=== PATIENT | male | born 1985 | race Asian ===

== ENCOUNTER 2023-03-10 15:38 | Inpatient (IN) | payer OTHER ==
[2023-03-10] MEDS ORDERED: diazePAM CARPU-JECT 10 MG/2 ML DISP.SYRIN IVPUSH ONE (16:57)
[2023-03-10] MEDS ORDERED: THIAMINE HCL 100 MG TABLET (FP) PO ONE (16:59)
[2023-03-10] MEDS ORDERED: diazePAM CARPU-JECT 10 MG/2 ML DISP.SYRIN ONE (17:35)
[2023-03-10] MEDS ORDERED: THIAMINE HCL 100 MG TABLET (FP) ONE (17:35)
[2023-03-10 17:44] LABS: BASO % 0.6 % (0-2.0); EOS % 3.5 % (0-4.5); HEMATOCRIT 39.3 % (35.4-49); HEMOGLOBIN 13.1 GM/dL (11.7-16.9); LYMPH % 13.5 % (8-40); MCH 28.6 pg (25.7-33.7); MCHC 33.3 g/dl (32.0-35.9); MEAN PLT VOLUME 8.6 fl (7.5-11.1); MONO % 12.1 % (3.8-10.2); NEUT % 70.3 % (42.8-82.8); PLATELET COUNT 383 10^3/uL (134-434); RBC 4.57 M/mm3 (4.00-5.60); RDW 17.1 % (11.9-15.9); WHITE BLOOD COUNT 7.8 K/mm3 (4.0-10.0)
[2023-03-10 18:07] LABS: POTASSIUM 4.7 mmol/L (3.5-5.1)
[2023-03-10 18:09] LABS: ALBUMIN 2.5 g/dl (3.4-5.0); BLOOD UREA NITROGEN 19.2 mg/dL (7-18)
[2023-03-10 18:12] LABS: CREATININE 2.2 mg/dL (0.55-1.3)
[2023-03-10 18:14] LABS: BILIRUBIN,TOTAL 0.6 mg/dL (0.2-1); TOT PROT 6.4 g/dl (6.4-8.2)
[2023-03-10] MEDS ORDERED: ATORVASTATIN CA 40 MG TABLET (FP) PO ONE (18:42)
[2023-03-10] MEDS ORDERED: CARVEDILOL 25 MG TABLET (FP) PO ONE (18:42)
[2023-03-10] MEDS ORDERED: FUROSEMIDE 40 MG TABLET (FP) PO ONE (18:42)
[2023-03-10] MEDS ORDERED: SPIRONOLACTONE 25 MG TABLET PO ONE (18:42)
[2023-03-10] MEDS ORDERED: ATORVASTATIN CA 40 MG TABLET (FP) ONE ×2 (18:49→23:42)
[2023-03-10] MEDS ORDERED: FUROSEMIDE 40 MG TABLET (FP) ONE (18:49)
[2023-03-10] MEDS ORDERED: CARVEDILOL 25 MG TABLET (FP) ONE (18:49)
[2023-03-10] MEDS ORDERED: SPIRONOLACTONE 25 MG TABLET ONE (18:49)
[2023-03-10] MEDS ORDERED: ACETAMINOPHEN 1000 MG/100 ML BAG IVPB ONE (20:00)
[2023-03-10] MEDS ORDERED: ACETAMINOPHEN INJECTION 100 ML IVPB ONE (20:50)
[2023-03-10] MEDS ORDERED: LORazepam 1 MG TABLET PO PRN (21:43)
[2023-03-10] MEDS: LORazepam 2 MG TABLET PO SCH ×2 (22:11→23:50)
[2023-03-10] MEDS: INSULIN SLIDING SCALE (NOVOLOG) 1 VIAL SQ SCH (22:57)
[2023-03-10] MEDS ORDERED: HEPARIN NA (PORCINE) 5,000 UNITS/ML 1ML VIAL ONE (23:42)
[2023-03-10] MEDS ORDERED: LORazepam 1 MG TABLET ONE (23:42)
[2023-03-10] MEDS ORDERED: hydrALAZINE HCL 10 MG TABLET ONE (23:42)
[2023-03-10] MEDS: ATORVASTATIN CA 40 MG TABLET (FP) PO SCH (23:50)
[2023-03-10] MEDS: HEPARIN NA (PORCINE) 5,000 UNITS/ML 1ML VIAL SQ SCH (23:50)
[2023-03-10] MEDS: hydrALAZINE HCL 10 MG TABLET PO SCH (23:50)
[2023-03-11 00:52] VITALS: BMI 23.3
[2023-03-11] MEDS: LORazepam 2 MG TABLET PO SCH (05:53)
[2023-03-11] MEDS: HEPARIN NA (PORCINE) 5,000 UNITS/ML 1ML VIAL SQ SCH ×3 (05:59→23:39)
[2023-03-11] MEDS: hydrALAZINE HCL 10 MG TABLET PO SCH ×3 (05:59→23:40)
[2023-03-11] MEDS ORDERED: FUROSEMIDE 40 MG TABLET (FP) PO SCH (06:00)
[2023-03-11] MEDS: LORazepam 1 MG TABLET PO SCH ×4 (06:03→23:39)
[2023-03-11] MEDS: INSULIN SLIDING SCALE (NOVOLOG) 1 VIAL SQ SCH ×4 (06:04→23:39)
[2023-03-11 08:22] LABS: HEMATOCRIT 37.3 % (35.4-49); HEMOGLOBIN 12.3 GM/dL (11.7-16.9); MCH 28.3 pg (25.7-33.7); MEAN CELL VOLUME 85.8 fl (80-96); MEAN PLT VOLUME 7.9 fl (7.5-11.1); PLATELET COUNT 258 10^3/uL (134-434); RBC 4.34 M/mm3 (4.00-5.60); RDW 16.9 % (11.9-15.9)
[2023-03-11 08:29] LABS: CHLORIDE 108 mmol/L (98-107); SODIUM 142 mmol/L (136-145)
[2023-03-11 08:40] LABS: BLOOD UREA NITROGEN 17.4 mg/dL (7-18); CALCIUM 7.7 mg/dL (8.5-10.1); CO2 25 mmol/L (21-32); GLUCOSE,RANDOM 94 mg/dL (74-106)
[2023-03-11 08:41] LABS: ALBUMIN 2.2 g/dl (3.4-5.0)
[2023-03-11 08:43] LABS: ALK PHOS 134 U/L (45-117); SGPT/ALT 18 U/L (13-61)
[2023-03-11 08:44] LABS: LDL CHOLESTEROL (ONLY SJRH) 108 mg/dL (5-100); SGOT/AST 23 U/L (15-37)
[2023-03-11 08:45] LABS: BILIRUBIN,TOTAL 1.1 mg/dL (0.2-1); TOT PROT 5.3 g/dl (6.4-8.2)
[2023-03-11 09:00] LABS: ANION GAP 9 mmol/L (4-13); CHOLESTEROL 170 mg/dL (50-200); HDL CHOLESTEROL 40 mg/dL (40-60); POTASSIUM 2.7 mmol/L (3.5-5.1)
[2023-03-11] MEDS ORDERED: POTASSIUM CHLORIDE TABS 20 MEQ TABLET.ER (FP) PO ONE (10:00)
[2023-03-11] MEDS: MULTIVITAMINS (DAILY MVI) TABLET (FP) PO SCH (10:03)
[2023-03-11] MEDS: ASPIRIN COATED 81 MG TABLET.EC PO SCH (10:03)
[2023-03-11] MEDS: FOLIC ACID 1 MG TABLET (FP) PO SCH (10:04)
[2023-03-11] MEDS: CARVEDILOL 25 MG TABLET (FP) PO SCH (10:04)
[2023-03-11] MEDS: THIAMINE HCL 100 MG TABLET (FP) PO SCH (10:04)
[2023-03-11] MEDS: SPIRONOLACTONE 25 MG TABLET PO SCH (10:04)
[2023-03-11] MEDS: ISOSORBIDE MONONITRATE 60 MG TAB.SR.24H (FP) PO SCH (10:05)
[2023-03-11] MEDS: KCL 10 MEQ IVPB 10 MEQ/100 ML INFUS.BAG IVPB SCH ×4 (10:05→15:14)
[2023-03-11] MEDS: FUROSEMIDE 40 MG/4 ML INJECTABLE VIAL IVPUSH SCH (13:48)
[2023-03-11] MEDS ORDERED: KCL 10 MEQ IVPB 10 MEQ/100 ML INFUS.BAG IVPB SCH (15:00)
[2023-03-11] MEDS: ATORVASTATIN CA 40 MG TABLET (FP) PO SCH (23:40)
[2023-03-12] MEDS: LORazepam 1 MG TABLET PO SCH ×4 (05:10→22:55)
[2023-03-12] MEDS: FUROSEMIDE 40 MG/4 ML INJECTABLE VIAL IVPUSH SCH ×2 (05:11→13:38)
[2023-03-12] MEDS: hydrALAZINE HCL 10 MG TABLET PO SCH ×3 (05:11→22:55)
[2023-03-12] MEDS: HEPARIN NA (PORCINE) 5,000 UNITS/ML 1ML VIAL SQ SCH ×3 (05:11→22:55)
[2023-03-12] MEDS: INSULIN SLIDING SCALE (NOVOLOG) 1 VIAL SQ SCH ×3 (06:11→16:41)
[2023-03-12 06:54] LABS: HEMOGLOBIN 13.1 GM/dL (11.7-16.9); MCH 28.4 pg (25.7-33.7); MCHC 32.7 g/dl (32.0-35.9); MEAN CELL VOLUME 86.9 fl (80-96); MEAN PLT VOLUME 7.6 fl (7.5-11.1); PLATELET COUNT 317 10^3/uL (134-434); RDW 17.4 % (11.9-15.9); WHITE BLOOD COUNT 10.9 K/mm3 (4.0-10.0)
[2023-03-12 07:08] LABS: POTASSIUM 3.5 mmol/L (3.5-5.1)
[2023-03-12 07:11] LABS: CALCIUM 7.9 mg/dL (8.5-10.1)
[2023-03-12 07:12] LABS: ALBUMIN 2.4 g/dl (3.4-5.0); MAGNESIUM 1.4 mg/dL (1.8-2.4)
[2023-03-12 07:15] LABS: CREATININE 2.3 mg/dL (0.55-1.3); PHOSPHOROUS 2.6 mg/dL (2.5-4.9)
[2023-03-12 07:16] LABS: BILIRUBIN,TOTAL 0.9 mg/dL (0.2-1); TOT PROT 5.9 g/dl (6.4-8.2)
[2023-03-12] MEDS ORDERED: MAGNESIUM SULFATE IN WATER 2 GM/50 ML IVPB IVPB ONE (09:00)
[2023-03-12] MEDS: ISOSORBIDE MONONITRATE 60 MG TAB.SR.24H (FP) PO SCH (11:13)
[2023-03-12] MEDS: THIAMINE HCL 100 MG TABLET (FP) PO SCH (11:13)
[2023-03-12] MEDS: FOLIC ACID 1 MG TABLET (FP) PO SCH (11:13)
[2023-03-12] MEDS: SPIRONOLACTONE 25 MG TABLET PO SCH (11:13)
[2023-03-12] MEDS: MULTIVITAMINS (DAILY MVI) TABLET (FP) PO SCH (11:14)
[2023-03-12] MEDS: CARVEDILOL 25 MG TABLET (FP) PO SCH ×2 (11:14→22:55)
[2023-03-12] MEDS: ASPIRIN COATED 81 MG TABLET.EC PO SCH (11:14)
[2023-03-12] MEDS ORDERED: MAGNESIUM 2GM/50ML STERILE WATER IVPB IVPB ONE (13:12)
[2023-03-12] MEDS ORDERED: MAGNESIUM SULF 50% (8.12 MEQ/2 ML-1 GM VIAL) IVPB ONE (15:16)
[2023-03-12] MEDS: ATORVASTATIN CA 40 MG TABLET (FP) PO SCH (22:55)
[2023-03-13] MEDS ORDERED: LORazepam 0.5 MG TABLET PO PRN
[2023-03-13] MEDS ORDERED: FUROSEMIDE 40 MG TABLET (FP) PO SCH (06:00)
[2023-03-13] MEDS: LORazepam 0.5 MG TABLET PO SCH ×4 (06:25→22:18)
[2023-03-13] MEDS: HEPARIN NA (PORCINE) 5,000 UNITS/ML 1ML VIAL SQ SCH ×3 (06:26→22:19)
[2023-03-13] MEDS: hydrALAZINE HCL 10 MG TABLET PO SCH ×3 (06:26→22:19)
[2023-03-13 06:33] LABS: BASO % 0.6 % (0-2.0); EOS % 2.3 % (0-4.5); HEMATOCRIT 42.3 % (35.4-49); HEMOGLOBIN 13.7 GM/dL (11.7-16.9); LYMPH % 11.4 % (8-40); MCH 28.2 pg (25.7-33.7); MCHC 32.5 g/dl (32.0-35.9); MEAN CELL VOLUME 86.7 fl (80-96); MEAN PLT VOLUME 7.5 fl (7.5-11.1); MONO % 9.2 % (3.8-10.2); NEUT % 76.5 % (42.8-82.8); PLATELET COUNT 337 10^3/uL (134-434); RBC 4.88 M/mm3 (4.00-5.60); RDW 17.7 % (11.9-15.9); WHITE BLOOD COUNT 11.3 K/mm3 (4.0-10.0)
[2023-03-13 06:55] LABS: POTASSIUM 3.8 mmol/L (3.5-5.1)
[2023-03-13 06:58] LABS: ALBUMIN 2.5 g/dl (3.4-5.0); BLOOD UREA NITROGEN 22.1 mg/dL (7-18); CALCIUM 8.1 mg/dL (8.5-10.1); MAGNESIUM 2.3 mg/dL (1.8-2.4)
[2023-03-13 07:02] LABS: BILIRUBIN,TOTAL 0.7 mg/dL (0.2-1); CREATININE 2.5 mg/dL (0.55-1.3); PHOSPHOROUS 3.2 mg/dL (2.5-4.9)
[2023-03-13 07:04] LABS: TOT PROT 6.2 g/dl (6.4-8.2)
[2023-03-13] MEDS: FOLIC ACID 1 MG TABLET (FP) PO SCH (10:00)
[2023-03-13] MEDS ORDERED: SACUBITRIL/VALSARTAN 24 MG-26 MG TABLET PO SCH (10:00)
[2023-03-13] MEDS: SPIRONOLACTONE 25 MG TABLET PO SCH (10:00)
[2023-03-13] MEDS: MULTIVITAMINS (DAILY MVI) TABLET (FP) PO SCH (10:00)
[2023-03-13] MEDS ORDERED: LISINOPRIL 5 MG TABLET PO SCH (10:00)
[2023-03-13] MEDS: ASPIRIN COATED 81 MG TABLET.EC PO SCH (10:00)
[2023-03-13] MEDS: CARVEDILOL 25 MG TABLET (FP) PO SCH ×2 (10:01→22:19)
[2023-03-13] MEDS: ISOSORBIDE MONONITRATE 60 MG TAB.SR.24H (FP) PO SCH (10:01)
[2023-03-13] MEDS: THIAMINE HCL 100 MG TABLET (FP) PO SCH (10:01)
[2023-03-13] MEDS: FUROSEMIDE 40 MG TABLET (FP) PO SCH (13:56)
[2023-03-13] MEDS: ATORVASTATIN CA 40 MG TABLET (FP) PO SCH (22:18)
[2023-03-14] MEDS ORDERED: LORazepam 0.5 MG TABLET PO ONE (05:00)
[2023-03-14] MEDS: FUROSEMIDE 40 MG TABLET (FP) PO SCH ×2 (06:18→13:29)
[2023-03-14] MEDS: HEPARIN NA (PORCINE) 5,000 UNITS/ML 1ML VIAL SQ SCH ×3 (06:18→23:01)
[2023-03-14] MEDS: hydrALAZINE HCL 10 MG TABLET PO SCH ×3 (06:18→23:00)
[2023-03-14 07:25] LABS: BASO % 0.5 % (0-2.0); EOS % 1.6 % (0-4.5); HEMATOCRIT 42.6 % (35.4-49); HEMOGLOBIN 13.7 GM/dL (11.7-16.9); LYMPH % 10.1 % (8-40); MCH 27.9 pg (25.7-33.7); MCHC 32.2 g/dl (32.0-35.9); MEAN CELL VOLUME 86.6 fl (80-96); MEAN PLT VOLUME 8.1 fl (7.5-11.1); MONO % 9.9 % (3.8-10.2); NEUT % 77.9 % (42.8-82.8); PLATELET COUNT 384 10^3/uL (134-434); RBC 4.91 M/mm3 (4.00-5.60); RDW 17.9 % (11.9-15.9); WHITE BLOOD COUNT 13.3 K/mm3 (4.0-10.0)
[2023-03-14 07:42] LABS: POTASSIUM 4.1 mmol/L (3.5-5.1)
[2023-03-14 07:45] LABS: ALBUMIN 2.5 g/dl (3.4-5.0); BLOOD UREA NITROGEN 27.9 mg/dL (7-18); CALCIUM 8.5 mg/dL (8.5-10.1); MAGNESIUM 2.1 mg/dL (1.8-2.4)
[2023-03-14 07:48] LABS: CREATININE 2.5 mg/dL (0.55-1.3); PHOSPHOROUS 3.6 mg/dL (2.5-4.9)
[2023-03-14 07:49] LABS: BILIRUBIN,TOTAL 0.6 mg/dL (0.2-1); TOT PROT 6.2 g/dl (6.4-8.2)
[2023-03-14] MEDS: ASPIRIN COATED 81 MG TABLET.EC PO SCH (10:27)
[2023-03-14] MEDS: THIAMINE HCL 100 MG TABLET (FP) PO SCH (10:27)
[2023-03-14] MEDS: CARVEDILOL 25 MG TABLET (FP) PO SCH ×2 (10:27→23:00)
[2023-03-14] MEDS: MULTIVITAMINS (DAILY MVI) TABLET (FP) PO SCH (10:27)
[2023-03-14] MEDS: LISINOPRIL 5 MG TABLET PO SCH (10:27)
[2023-03-14] MEDS: SPIRONOLACTONE 25 MG TABLET PO SCH (10:27)
[2023-03-14] MEDS: ISOSORBIDE MONONITRATE 60 MG TAB.SR.24H (FP) PO SCH (10:27)
[2023-03-14] MEDS: FOLIC ACID 1 MG TABLET (FP) PO SCH (10:27)
[2023-03-14] MEDS ORDERED: ACETAMINOPHEN 1000 MG/100 ML BAG IVPB ONE (11:45)
[2023-03-14] MEDS: predniSONE 20 MG TABLET (UD) PO SCH (14:30)
[2023-03-14] MEDS: ATORVASTATIN CA 40 MG TABLET (FP) PO SCH (23:00)
[2023-03-15 05:50] VITALS: RESP 18
[2023-03-15] MEDS: FUROSEMIDE 40 MG TABLET (FP) PO SCH (05:51)
[2023-03-15] MEDS: hydrALAZINE HCL 10 MG TABLET PO SCH (05:51)
[2023-03-15] MEDS: HEPARIN NA (PORCINE) 5,000 UNITS/ML 1ML VIAL SQ SCH (05:51)
[2023-03-15] MEDS: FOLIC ACID 1 MG TABLET (FP) PO SCH (10:34)
[2023-03-15] MEDS: predniSONE 20 MG TABLET (UD) PO SCH (10:34)
[2023-03-15] MEDS: LISINOPRIL 5 MG TABLET PO SCH (10:34)
[2023-03-15] MEDS: ASPIRIN COATED 81 MG TABLET.EC PO SCH (10:34)
[2023-03-15] MEDS: MULTIVITAMINS (DAILY MVI) TABLET (FP) PO SCH (10:34)
[2023-03-15] MEDS: THIAMINE HCL 100 MG TABLET (FP) PO SCH (10:34)
[2023-03-15] MEDS: ISOSORBIDE MONONITRATE 60 MG TAB.SR.24H (FP) PO SCH (10:34)
[2023-03-15] MEDS: SPIRONOLACTONE 25 MG TABLET PO SCH (10:34)
[2023-03-15] MEDS: CARVEDILOL 25 MG TABLET (FP) PO SCH (10:34)
[2023-03-15 13:24] VITALS: BP 132/76; PULSE 70; TEMP 98.6
== END 2023-03-15 13:27 | disposition home or self-care (01) | DRG 194 ==
LOC: JER 15:38 → JERBED 18:52 → J4S 03-11 00:41
PROVIDERS: ADMIT Internal Medicine; ATTEND Internal Medicine
DX: I13.0 Hypertensive heart and chronic kidney disease with heart failure and stage 1 through stage 4 chronic kidney disease, or unspecified chronic kidney disease (principal); I47.20 Ventricular tachycardia, unspecified; F10.239 Alcohol dependence with withdrawal, unspecified; I24.89 Other forms of acute ischemic heart disease; J20.5 Acute bronchitis due to respiratory syncytial virus; M10.9 Gout, unspecified; I16.0 Hypertensive urgency; I50.23 Acute on chronic systolic (congestive) heart failure; E87.6 Hypokalemia; N18.9 Chronic kidney disease, unspecified; R74.01 Elevation of levels of liver transaminase levels
CPT/HCPCS: 0241U-QW; 36415; 71045-TC-FY; 76700-TC; 80053; 80061; 82550; 82962; 83036; 83735; 83880; 84100; 84132; 84439; 84443; 84484; 85025; 85027; 86704; 86803; 87340; 87517; 93005; 93010; 93306-TC; 99285-25; J1644

== ENCOUNTER 2023-05-04 17:08 | Inpatient (IN) | payer OTHER ==
[2023-05-04] MEDS ORDERED: ACETAMINOPHEN INJECTION 100 ML IVPB ONE (18:25)
[2023-05-04] MEDS ORDERED: VANCOMYCIN/WATER 1250 MG 1,250 MG/250 ML BAG IVPB ONE (18:25)
[2023-05-04] MEDS ORDERED: CEFEPIME 1 GM/100 ML BAG IVPB ONE (18:26)
[2023-05-04] MEDS: ACETAMINOPHEN 1000 MG/100 ML BAG IVPB ONE (19:04)
[2023-05-04 19:06] LABS: VENOUS BASE EXCESS -1.9 mmol/L (-2-2); VENOUS O2 SATURATION 98.5 % (70-80); VENOUS PCO2 22.1 mmHg (38-52); VENOUS PH 7.548 (7.310-7.410)
[2023-05-04 19:07] LABS: HEMATOCRIT 35.6 % (35.4-49); HEMOGLOBIN 11.7 GM/dL (11.7-16.9); MCH 28.7 pg (25.7-33.7); MEAN CELL VOLUME 86.8 fl (80-96); MEAN PLT VOLUME 7.8 fl (7.5-11.1); PLATELET COUNT 271 10^3/uL (134-434); RDW 18.1 % (11.9-15.9); WHITE BLOOD COUNT 21.7 K/mm3 (4.0-10.0)
[2023-05-04 19:13] LABS: INR 1.12 (0.83-1.09)
[2023-05-04 19:16] LABS: ACTIVATED PTT 32.2 SECONDS (25.2-36.5)
[2023-05-04 19:31] LABS: POTASSIUM 3.4 mmol/L (3.5-5.1)
[2023-05-04 19:33] LABS: CALCIUM 7.1 mg/dL (8.5-10.1)
[2023-05-04 19:34] LABS: ALBUMIN 2.3 g/dl (3.4-5.0); BLOOD UREA NITROGEN 48.5 mg/dL (7-18); MAGNESIUM 1.1 mg/dL (1.8-2.4)
[2023-05-04 19:37] LABS: CREATININE 3.8 mg/dL (0.55-1.3)
[2023-05-04 19:39] LABS: BILIRUBIN,TOTAL 0.9 mg/dL (0.2-1); TOT PROT 6.3 g/dl (6.4-8.2)
[2023-05-04] MEDS ORDERED: diazePAM CARPU-JECT 10 MG/2 ML DISP.SYRIN ONE (20:06)
[2023-05-04] MEDS: SODIUM CHLORIDE 0.9% 500 ML INFUS.BAG IV ONE ×2 (20:15→20:16)
[2023-05-04] MEDS: CEFEPIME HCL 1 GM VIAL (RESTRICTED TO ID) IVPB ONE (20:15)
[2023-05-04] MEDS: diazePAM CARPU-JECT 10 MG/2 ML DISP.SYRIN IVPUSH ONE (20:16)
[2023-05-04] MEDS ORDERED: KCL 10 MEQ IVPB 10 MEQ/100 ML INFUS.BAG IVPB ONE ×2 (20:38→23:48)
[2023-05-04] MEDS ORDERED: MAGNESIUM SULFATE IN WATER 2 GM/50 ML IVPB IVPB ONE (20:38)
[2023-05-04 20:44] LABS: ANISOCYTOSIS 1+; MACROCYTOSIS 0; PLATELET ESTIMATE NORMAL
[2023-05-04] MEDS: VANCOMYCIN/WATER 1250 MG 1,250 MG/250 ML BAG IVPB ONE (20:45)
[2023-05-04] MEDS: MAGNESIUM SULFATE IN WATER 2 GM/50 ML IVPB IVPB ONE (20:45)
[2023-05-04 23:21] LABS: CHLORIDE 96 mmol/L (98-107); SODIUM 131 mmol/L (136-145)
[2023-05-04 23:23] LABS: GLUCOSE,RANDOM 99 mg/dL (74-106)
[2023-05-04 23:24] LABS: ALBUMIN 2.1 g/dl (3.4-5.0); BLOOD UREA NITROGEN 50.8 mg/dL (7-18); CO2 21 mmol/L (21-32)
[2023-05-04] MEDS: KCL 10 MEQ IVPB 10 MEQ/100 ML INFUS.BAG IVPB SCH ×2 (23:25→23:50)
[2023-05-04 23:27] LABS: SGOT/AST 159 U/L (15-37); SGPT/ALT 40 U/L (13-61)
[2023-05-04 23:28] LABS: BILIRUBIN,TOTAL 1.1 mg/dL (0.2-1); TOT PROT 5.8 g/dl (6.4-8.2)
[2023-05-04 23:29] LABS: ALK PHOS 132 U/L (45-117)
[2023-05-04 23:30] LABS: ANION GAP 15 mmol/L (4-13); CALCIUM 6.5 mg/dL (8.5-10.1); POTASSIUM 2.5 mmol/L (3.5-5.1)
[2023-05-04 23:51] LABS: MAGNESIUM 1.8 mg/dL (1.8-2.4)
[2023-05-05] MEDS ORDERED: MEROPENEM 500 MG in DEXTROSE 5%-WATER 100 ML IVPB SCH (02:00)
[2023-05-05] MEDS ORDERED: KCL 10 MEQ IVPB 10 MEQ/100 ML INFUS.BAG IVPB ONE (02:07)
[2023-05-05 02:23] LABS: EPI CELLS 9 /uL (0-25.1); HYALINE CASTS 1 /uL (0-3.1); PH,URINE 5.5 (5.0-8.0); URINE APPEARANCE CLEAR; URINE BACTERIA 4 /uL (0-1359); URINE BILIRUBIN NEGATIVE (NEGATIVE); URINE COLOR YELLOW; URINE GLUCOSE (UA) NEGATIVE (NEGATIVE); URINE KETONE NEGATIVE (NEGATIVE); URINE LEUK ESTERASE NEGATIVE (NEGATIVE); URINE NITRITE NEGATIVE (NEGATIVE); URINE PROTEIN 3+ (NEGATIVE); URINE RBC 126 /uL (0-23.9); URINE UROBILINOGEN 0.2 mg/dL (0.2-1.0); URINE WBC 24 /uL (0-25.8)
[2023-05-05] MEDS ORDERED: MEROPENEM 500 MG VIAL (RESTRICTED TO ID) IVPB ONE (02:57)
[2023-05-05] MEDS ORDERED: LORazepam 1 MG TABLET ONE ×2 (03:04→09:55)
[2023-05-05] MEDS: LORazepam 1 MG TABLET PO PRN (03:06)
[2023-05-05] MEDS: MEROPENEM 500 MG in DEXTROSE 5%-WATER 100 ML IVPB SCH (03:06)
[2023-05-05] MEDS: FOLIC ACID INJECTION - 1 MG, THIAMINE HCL 100 MG, MULTIVIT INJECTION ADULT 10 ML in SOD... IVPB ONE (03:47)
[2023-05-05 06:55] LABS: BASO % 0.1 % (0-2.0); HEMATOCRIT 34.3 % (35.4-49); HEMOGLOBIN 11.1 GM/dL (11.7-16.9); LYMPH % 3.5 % (8-40); MCH 28.7 pg (25.7-33.7); MCHC 32.4 g/dl (32.0-35.9); MEAN CELL VOLUME 88.6 fl (80-96); MEAN PLT VOLUME 8.2 fl (7.5-11.1); MONO % 6.8 % (3.8-10.2); NEUT % 89.6 % (42.8-82.8); PLATELET COUNT 169 10^3/uL (134-434); RBC 3.87 M/mm3 (4.00-5.60); RDW 18.1 % (11.9-15.9); WHITE BLOOD COUNT 15.1 K/mm3 (4.0-10.0)
[2023-05-05] MEDS: HEPARIN NA (PORCINE) 5,000 UNITS/ML 1ML VIAL SQ SCH (06:55)
[2023-05-05 07:34] LABS: ALK PHOS 109 U/L (45-117); ANION GAP 15 mmol/L (4-13); BILIRUBIN,TOTAL 0.9 mg/dL (0.2-1); BLOOD UREA NITROGEN 52.9 mg/dL (7-18); CALCIUM 6.5 mg/dL (8.5-10.1); CHLORIDE 98 mmol/L (98-107); CO2 19 mmol/L (21-32); CREATININE 4.2 mg/dL (0.55-1.3); GLUCOSE,RANDOM 110 mg/dL (74-106); MAGNESIUM 1.8 mg/dL (1.8-2.4); PHOSPHOROUS 4.2 mg/dL (2.5-4.9); POTASSIUM 2.7 mmol/L (3.5-5.1); SGOT/AST 134 U/L (15-37); SGPT/ALT 38 U/L (13-61); SODIUM 132 mmol/L (136-145); TOT PROT 5.4 g/dl (6.4-8.2)
[2023-05-05] MEDS ORDERED: POTASSIUM CHLORIDE TABS 20 MEQ TABLET.ER (FP) PO ONE (09:55)
[2023-05-05] MEDS ORDERED: FOLIC ACID 1 MG TABLET (FP) ONE (09:55)
[2023-05-05] MEDS ORDERED: KCL 10 MEQ IVPB 30 MEQ/300 ML INFUS.BAG IVPB ONE (09:56)
[2023-05-05] MEDS: POTASSIUM CHLORIDE TABS 20 MEQ TABLET.ER (FP) PO ONE (10:17)
[2023-05-05] MEDS: LORazepam 1 MG TABLET PO SCH (10:18)
[2023-05-05] MEDS: NICOTINE 14 MG/24 HOURS TOPICAL PATCH TD SCH (10:18)
[2023-05-05] MEDS: THIAMINE HCL 100 MG TABLET (FP) PO SCH (10:18)
[2023-05-05] MEDS: KCL 10 MEQ IVPB 10 MEQ/100 ML INFUS.BAG IVPB SCH ×2 (10:18→21:12)
[2023-05-05] MEDS: FOLIC ACID 1 MG TABLET (FP) PO SCH (10:18)
[2023-05-05 13:28] LABS: POTASSIUM 2.8 mmol/L (3.5-5.1)
[2023-05-05] MEDS: MEROPENEM 1 GM in DEXTROSE 5%-WATER 100 ML IVPB SCH (16:56)
[2023-05-05] MEDS ORDERED: MEROPENEM 1 GM VIAL (RESTRICTED TO ID) IVPB ONE (16:56)
[2023-05-05] MEDS: SODIUM CHLORIDE 1,000 ML IV SCH (20:11)
[2023-05-05 20:32] LABS: CHLORIDE 101 mmol/L (98-107); SODIUM 134 mmol/L (136-145)
[2023-05-05 20:35] LABS: BLOOD UREA NITROGEN 54.9 mg/dL (7-18); CO2 18 mmol/L (21-32); GLUCOSE,RANDOM 110 mg/dL (74-106)
[2023-05-05 20:38] LABS: CREATININE 4.1 mg/dL (0.55-1.3)
[2023-05-05 20:41] LABS: ANION GAP 15 mmol/L (4-13); CALCIUM 6.9 mg/dL (8.5-10.1); POTASSIUM 2.9 mmol/L (3.5-5.1)
[2023-05-05] MEDS: POTASSIUM CHLORIDE ORAL LIQUID 20 MEQ/15 ML PO ONE (21:12)
[2023-05-05] MEDS: CARVEDILOL 25 MG TABLET (FP) PO SCH (21:14)
[2023-05-05] MEDS: VANCOMYCIN ORAL SOLUTION 125 MG/2.5 ML PO SCH (23:13)
[2023-05-06 07:00] LABS: BASO % 0.2 % (0-2.0); EOS % 0.1 % (0-4.5); HEMATOCRIT 30.2 % (35.4-49); HEMOGLOBIN 9.7 GM/dL (11.7-16.9); LYMPH % 6.3 % (8-40); MCH 28.4 pg (25.7-33.7); MCHC 32.1 g/dl (32.0-35.9); MEAN CELL VOLUME 88.7 fl (80-96); MEAN PLT VOLUME 8.7 fl (7.5-11.1); NEUT % 83.4 % (42.8-82.8); PLATELET COUNT 145 10^3/uL (134-434); RBC 3.41 M/mm3 (4.00-5.60); RDW 18.3 % (11.9-15.9); WHITE BLOOD COUNT 12.5 K/mm3 (4.0-10.0)
[2023-05-06 07:11] LABS: POTASSIUM 3.2 mmol/L (3.5-5.1)
[2023-05-06 07:16] LABS: CALCIUM 7.4 mg/dL (8.5-10.1)
[2023-05-06 07:20] LABS: ALBUMIN 1.7 g/dl (3.4-5.0); BLOOD UREA NITROGEN 59.8 mg/dL (7-18); MAGNESIUM 1.9 mg/dL (1.8-2.4); PHOSPHOROUS 5.7 mg/dL (2.5-4.9)
[2023-05-06 07:22] LABS: BILIRUBIN,TOTAL 0.7 mg/dL (0.2-1)
[2023-05-06] MEDS: ASPIRIN COATED 81 MG TABLET.EC PO SCH (09:52)
[2023-05-06] MEDS: ISOSORBIDE MONONITRATE 60 MG TAB.SR.24H (FP) PO SCH (09:54)
[2023-05-06] MEDS ORDERED: POTASSIUM CHLORIDE ORAL LIQUID 20 MEQ/15 ML PO ONE (11:11)
[2023-05-06] MEDS: SODIUM CHLORIDE 1,000 ML IV SCH (12:55)
[2023-05-06 16:29] LABS: HIV INTERPRETATION NEGATIVE (NEGATIVE)
[2023-05-06] MEDS: POTASSIUM CHLORIDE TABS 20 MEQ TABLET.ER (FP) PO ONE (18:44)
[2023-05-07] MEDS: LORazepam 1 MG TABLET PO SCH (05:09)
[2023-05-07 06:58] LABS: BASO % 0.1 % (0-2.0); EOS % 0.9 % (0-4.5); HEMATOCRIT 28.1 % (35.4-49); HEMOGLOBIN 9.4 GM/dL (11.7-16.9); LYMPH % 6.4 % (8-40); MCH 29.5 pg (25.7-33.7); MCHC 33.2 g/dl (32.0-35.9); MEAN CELL VOLUME 88.6 fl (80-96); MEAN PLT VOLUME 8.7 fl (7.5-11.1); NEUT % 82.6 % (42.8-82.8); PLATELET COUNT 163 10^3/uL (134-434); RBC 3.17 M/mm3 (4.00-5.60); RDW 18.2 % (11.9-15.9); WHITE BLOOD COUNT 9.8 K/mm3 (4.0-10.0)
[2023-05-07 07:14] LABS: POTASSIUM 3.6 mmol/L (3.5-5.1)
[2023-05-07 07:22] LABS: ALBUMIN 1.6 g/dl (3.4-5.0); CALCIUM 7.5 mg/dL (8.5-10.1)
[2023-05-07 07:23] LABS: BLOOD UREA NITROGEN 63.5 mg/dL (7-18)
[2023-05-07 07:25] LABS: PHOSPHOROUS 3.5 mg/dL (2.5-4.9)
[2023-05-07 07:26] LABS: CREATININE 3.5 mg/dL (0.55-1.3)
[2023-05-07 07:27] LABS: BILIRUBIN,TOTAL 0.6 mg/dL (0.2-1); TOT PROT 4.8 g/dl (6.4-8.2)
[2023-05-07 14:08] VITALS: BMI 20.5
[2023-05-07] MEDS: CARVEDILOL 12.5 MG TABLET (FP) PO SCH (22:03)
[2023-05-08] MEDS ORDERED: LORazepam 0.5 MG TABLET PO PRN
[2023-05-08] MEDS: LORazepam 0.5 MG TABLET PO SCH (05:25)
[2023-05-08 07:38] LABS: BASO % 0.9 % (0-2.0); EOS % 2.4 % (0-4.5); HEMATOCRIT 29.1 % (35.4-49); HEMOGLOBIN 9.6 GM/dL (11.7-16.9); LYMPH % 14.1 % (8-40); MCH 29.2 pg (25.7-33.7); MCHC 32.8 g/dl (32.0-35.9); MEAN CELL VOLUME 89.1 fl (80-96); MEAN PLT VOLUME 9.3 fl (7.5-11.1); MONO % 14.4 % (3.8-10.2); NEUT % 68.2 % (42.8-82.8); PLATELET COUNT 243 10^3/uL (134-434); RBC 3.27 M/mm3 (4.00-5.60); RDW 18.1 % (11.9-15.9); WHITE BLOOD COUNT 7.6 K/mm3 (4.0-10.0)
[2023-05-08 07:52] LABS: POTASSIUM 3.9 mmol/L (3.5-5.1)
[2023-05-08 07:55] LABS: CALCIUM 7.6 mg/dL (8.5-10.1)
[2023-05-08 07:56] LABS: ALBUMIN 1.6 g/dl (3.4-5.0); BLOOD UREA NITROGEN 61.3 mg/dL (7-18); MAGNESIUM 2.1 mg/dL (1.8-2.4)
[2023-05-08 07:58] LABS: CREATININE 2.9 mg/dL (0.55-1.3)
[2023-05-08 07:59] LABS: PHOSPHOROUS 3.6 mg/dL (2.5-4.9)
[2023-05-08 08:00] LABS: BILIRUBIN,TOTAL 0.6 mg/dL (0.2-1); TOT PROT 4.9 g/dl (6.4-8.2)
[2023-05-08] MEDS: MAG HYDROX/AL HYDROX/SIMETH 30 ML UNIT-DOSE CUP PO ONE (16:20)
[2023-05-08] MEDS: PANTOPRAZOLE 40 MG TABLET PO ONE (16:51)
[2023-05-08] MEDS: SODIUM CHLORIDE 1,000 ML IV SCH (17:18)
[2023-05-09] MEDS: LORazepam 0.5 MG TABLET PO ONE (05:22)
[2023-05-09 07:01] LABS: BASO % 0.9 % (0-2.0); EOS % 2.4 % (0-4.5); HEMATOCRIT 35.8 % (35.4-49); HEMOGLOBIN 11.6 GM/dL (11.7-16.9); LYMPH % 13.5 % (8-40); MCH 29.1 pg (25.7-33.7); MCHC 32.5 g/dl (32.0-35.9); MEAN CELL VOLUME 89.5 fl (80-96); MONO % 12.6 % (3.8-10.2); NEUT % 70.6 % (42.8-82.8); PLATELET COUNT 424 10^3/uL (134-434); RDW 18.2 % (11.9-15.9); WHITE BLOOD COUNT 10.3 K/mm3 (4.0-10.0)
[2023-05-09 07:14] LABS: POTASSIUM 3.8 mmol/L (3.5-5.1)
[2023-05-09 07:22] LABS: CALCIUM 8.3 mg/dL (8.5-10.1)
[2023-05-09 07:23] LABS: BLOOD UREA NITROGEN 51.4 mg/dL (7-18); MAGNESIUM 2.2 mg/dL (1.8-2.4)
[2023-05-09 07:26] LABS: CREATININE 2.4 mg/dL (0.55-1.3); PHOSPHOROUS 3.6 mg/dL (2.5-4.9)
[2023-05-09 07:27] LABS: BILIRUBIN,TOTAL 0.5 mg/dL (0.2-1); TOT PROT 6.1 g/dl (6.4-8.2)
[2023-05-09] MEDS: PANTOPRAZOLE 40 MG TABLET PO SCH (10:02)
[2023-05-09] MEDS ORDERED: SODIUM CHLORIDE 1,000 ML IV SCH (15:16)
[2023-05-10 06:27] LABS: HEMATOCRIT 33.7 % (35.4-49); HEMOGLOBIN 10.8 GM/dL (11.7-16.9); MCH 28.7 pg (25.7-33.7); MCHC 32.1 g/dl (32.0-35.9); MEAN CELL VOLUME 89.5 fl (80-96); MEAN PLT VOLUME 8.2 fl (7.5-11.1); PLATELET COUNT 473 10^3/uL (134-434); RBC 3.77 M/mm3 (4.00-5.60); RDW 18.6 % (11.9-15.9)
[2023-05-10 06:47] LABS: POTASSIUM 3.7 mmol/L (3.5-5.1)
[2023-05-10 06:51] LABS: ALBUMIN 1.7 g/dl (3.4-5.0); BLOOD UREA NITROGEN 39.8 mg/dL (7-18); MAGNESIUM 1.8 mg/dL (1.8-2.4)
[2023-05-10 06:54] LABS: CREATININE 2.3 mg/dL (0.55-1.3); PHOSPHOROUS 4.4 mg/dL (2.5-4.9)
[2023-05-10 06:55] LABS: BILIRUBIN,TOTAL 0.4 mg/dL (0.2-1); TOT PROT 5.4 g/dl (6.4-8.2)
[2023-05-10 08:58] LABS: ANISOCYTOSIS 0; HELMET CELLS 0; HOWELL-JOLLY BODIES 0; MACROCYTOSIS 0; OVALOCYTE 0; ROULEAU 0; SICKELED CELLS 0; TARGET CELLS 0; TEAR DROP CELLS 0; TOXIC GRANULATION 0
[2023-05-10] MEDS: DOXYCYCLINE HYCLATE 100 MG CAPSULE PO SCH (17:14)
[2023-05-11 07:34] LABS: HEMATOCRIT 31.1 % (35.4-49); HEMOGLOBIN 9.9 GM/dL (11.7-16.9); MCH 28.5 pg (25.7-33.7); MCHC 31.8 g/dl (32.0-35.9); MEAN CELL VOLUME 89.5 fl (80-96); MEAN PLT VOLUME 8.1 fl (7.5-11.1); PLATELET COUNT 575 10^3/uL (134-434); RBC 3.48 M/mm3 (4.00-5.60); RDW 18.5 % (11.9-15.9)
[2023-05-11 08:04] LABS: POTASSIUM 4.5 mmol/L (3.5-5.1)
[2023-05-11 08:31] LABS: ALBUMIN 1.8 g/dl (3.4-5.0); BLOOD UREA NITROGEN 32.1 mg/dL (7-18); CALCIUM 8.1 mg/dL (8.5-10.1)
[2023-05-11] MEDS ORDERED: SODIUM CHLORIDE 1,000 ML IV SCH (08:32)
[2023-05-11 08:33] LABS: CREATININE 1.9 mg/dL (0.55-1.3)
[2023-05-11 08:35] LABS: BILIRUBIN,TOTAL 0.4 mg/dL (0.2-1); TOT PROT 5.5 g/dl (6.4-8.2)
[2023-05-11 09:24] LABS: ANISOCYTOSIS 0; HELMET CELLS 0; HOWELL-JOLLY BODIES 0; MACROCYTOSIS 0; OVALOCYTE 0; ROULEAU 0; SICKELED CELLS 0; TARGET CELLS 0; TEAR DROP CELLS 0; TOXIC GRANULATION 0
[2023-05-11] MEDS: PANTOPRAZOLE 40 MG TABLET PO SCH (10:09)
[2023-05-11] MEDS: DOXYCYCLINE HYCLATE 100 MG CAPSULE PO SCH (10:09)
[2023-05-11] MEDS: FOLIC ACID 1 MG TABLET (FP) PO SCH (10:09)
[2023-05-11] MEDS: CARVEDILOL 12.5 MG TABLET (FP) PO SCH (10:09)
[2023-05-11] MEDS: THIAMINE HCL 100 MG TABLET (FP) PO SCH (10:09)
[2023-05-11] MEDS: HEPARIN NA (PORCINE) 5,000 UNITS/ML 1ML VIAL SQ SCH (14:48)
[2023-05-11] MEDS: VANCOMYCIN ORAL SOLUTION 125 MG/2.5 ML PO SCH (15:26)
[2023-05-11] MEDS: MEROPENEM 1 GM in DEXTROSE 5%-WATER 100 ML IVPB SCH (16:24)
[2023-05-11] MEDS: ALLOPURINOL 100 MG TABLET (FP) PO SCH (16:24)
[2023-05-11] MEDS: ACETAMINOPHEN 325 MG TABLET (FP) PO ONE (23:15)
[2023-05-12] MEDS: LISINOPRIL 5 MG TABLET PO SCH (09:23)
[2023-05-12 09:51] LABS: HEMOGLOBIN 10.9 GM/dL (11.7-16.9); MCH 30.2 pg (25.7-33.7); MCHC 33.9 g/dl (32.0-35.9); MEAN CELL VOLUME 88.8 fl (80-96); MEAN PLT VOLUME 7.9 fl (7.5-11.1); PLATELET COUNT 501 10^3/uL (134-434); RDW 18.7 % (11.9-15.9); WHITE BLOOD COUNT 10.4 K/mm3 (4.0-10.0)
[2023-05-12 10:22] LABS: POTASSIUM 4.6 mmol/L (3.5-5.1)
[2023-05-12 10:29] LABS: ALBUMIN 1.9 g/dl (3.4-5.0); BLOOD UREA NITROGEN 30.4 mg/dL (7-18)
[2023-05-12 10:31] LABS: CALCIUM 8.4 mg/dL (8.5-10.1)
[2023-05-12 10:32] LABS: TOT PROT 6.2 g/dl (6.4-8.2)
[2023-05-12 10:34] LABS: BILIRUBIN,TOTAL 0.7 mg/dL (0.2-1)
[2023-05-12 12:18] LABS: ANISOCYTOSIS 0
[2023-05-12 14:26] VITALS: RESP 18
[2023-05-12] MEDS: ATORVASTATIN CA 40 MG TABLET (FP) PO SCH (22:16)
[2023-05-13 10:23] LABS: HEMATOCRIT 28.7 % (35.4-49); HEMOGLOBIN 9.6 GM/dL (11.7-16.9); MCH 29.9 pg (25.7-33.7); MCHC 33.5 g/dl (32.0-35.9); MEAN CELL VOLUME 89.3 fl (80-96); MEAN PLT VOLUME 7.6 fl (7.5-11.1); PLATELET COUNT 482 10^3/uL (134-434); RBC 3.21 M/mm3 (4.00-5.60); RDW 17.6 % (11.9-15.9); WHITE BLOOD COUNT 9.1 K/mm3 (4.0-10.0)
[2023-05-13] MEDS: COLCHICINE 0.6 MG TAB PO ONE (10:31)
[2023-05-13] MEDS: GABAPENTIN 100 MG CAPSULE PO SCH (10:32)
[2023-05-13] MEDS: COLCHICINE 0.6 MG TAB PO SCH (10:36)
[2023-05-13 10:44] LABS: POTASSIUM 4.3 mmol/L (3.5-5.1)
[2023-05-13 11:04] LABS: ANISOCYTOSIS 0; MACROCYTOSIS 0
[2023-05-13 11:07] LABS: URIC ACID 7.5 mg/dL (2.6-7.2)
[2023-05-13 11:08] LABS: CREATININE 1.8 mg/dL (0.55-1.3)
[2023-05-13 11:09] LABS: BILIRUBIN,TOTAL 0.6 mg/dL (0.2-1); TOT PROT 6.3 g/dl (6.4-8.2)
[2023-05-14] MEDS: ACETAMINOPHEN 325 MG TABLET (FP) PO PRN (09:31)
[2023-05-14 10:05] LABS: HEMATOCRIT 31.5 % (35.4-49); HEMOGLOBIN 10.5 GM/dL (11.7-16.9); MCH 29.6 pg (25.7-33.7); MCHC 33.4 g/dl (32.0-35.9); MEAN CELL VOLUME 88.7 fl (80-96); MEAN PLT VOLUME 7.7 fl (7.5-11.1); PLATELET COUNT 505 10^3/uL (134-434); RBC 3.55 M/mm3 (4.00-5.60); RDW 17.8 % (11.9-15.9); WHITE BLOOD COUNT 7.2 K/mm3 (4.0-10.0)
[2023-05-14 10:19] LABS: POTASSIUM 4.8 mmol/L (3.5-5.1)
[2023-05-14 10:22] LABS: CALCIUM 8.6 mg/dL (8.5-10.1)
[2023-05-14 10:23] LABS: BLOOD UREA NITROGEN 30.4 mg/dL (7-18)
[2023-05-14 10:26] LABS: CREATININE 1.6 mg/dL (0.55-1.3)
[2023-05-14 10:27] LABS: BILIRUBIN,TOTAL 0.3 mg/dL (0.2-1); TOT PROT 6.6 g/dl (6.4-8.2)
[2023-05-14 10:36] LABS: ANISOCYTOSIS 2+; MACROCYTOSIS 0
[2023-05-14] MEDS: hydrALAZINE HCL 10 MG TABLET PO SCH (13:27)
[2023-05-14] MEDS: CEPHALEXIN 250 MG/5 ML ORAL SUSPENSION PO SCH (19:47)
[2023-05-15 11:02] LABS: BASO % 0.8 % (0-2.0); EOS % 1.7 % (0-4.5); HEMOGLOBIN 10.2 GM/dL (11.7-16.9); LYMPH % 9.8 % (8-40); MCH 28.5 pg (25.7-33.7); MCHC 31.9 g/dl (32.0-35.9); MEAN CELL VOLUME 89.4 fl (80-96); MEAN PLT VOLUME 7.4 fl (7.5-11.1); MONO % 6.8 % (3.8-10.2); NEUT % 80.9 % (42.8-82.8); PLATELET COUNT 461 10^3/uL (134-434); RBC 3.58 M/mm3 (4.00-5.60); RDW 17.8 % (11.9-15.9); WHITE BLOOD COUNT 9.2 K/mm3 (4.0-10.0)
[2023-05-15 11:19] VITALS: BP 144/98; PULSE 82; TEMP 98.6
[2023-05-15 11:38] LABS: BLOOD UREA NITROGEN 27.4 mg/dL (7-18); CALCIUM 8.4 mg/dL (8.5-10.1)
[2023-05-15 11:41] LABS: CREATININE 1.6 mg/dL (0.55-1.3)
[2023-05-15 11:43] LABS: BILIRUBIN,TOTAL 0.3 mg/dL (0.2-1); TOT PROT 6.4 g/dl (6.4-8.2)
== END 2023-05-15 11:36 | disposition home or self-care (01) | DRG 720 ==
LOC: JER 17:08 → JERBED 05-05 00:30 → J2W 05-05 17:19 → J5S 05-11 08:54
PROVIDERS: ADMIT Internal Medicine; ATTEND Internal Medicine
DX: A41.89 Other specified sepsis (principal); I24.89 Other forms of acute ischemic heart disease; L03.116 Cellulitis of left lower limb; A04.72 Enterocolitis due to Clostridium difficile, not specified as recurrent; N17.9 Acute kidney failure, unspecified; I13.0 Hypertensive heart and chronic kidney disease with heart failure and stage 1 through stage 4 chronic kidney disease, or unspecified chronic kidney disease; E87.20 Acidosis, unspecified; I50.42 Chronic combined systolic (congestive) and diastolic (congestive) heart failure; N18.4 Chronic kidney disease, stage 4 (severe); E11.22 Type 2 diabetes mellitus with diabetic chronic kidney disease; E87.6 Hypokalemia; M62.82 Rhabdomyolysis; I42.6 Alcoholic cardiomyopathy; I42.8 Other cardiomyopathies; M10.9 Gout, unspecified; R26.2 Difficulty in walking, not elsewhere classified; R19.7 Diarrhea, unspecified; F10.10 Alcohol abuse, uncomplicated; R79.89 Other specified abnormal findings of blood chemistry; Z59.00 Homelessness unspecified
CPT/HCPCS: 0241U-QW; 36415; 70450-TC; 71045-TC-FY; 72125-TC; 72170-TC-FY; 73590-TC-LT-FY; 73610-TC-LT-FY; 73630-TC-LT; 73700-TC-RT; 74018-TC-FY; 76775-TC; 80048; 80053; 81003; 82550; 82553; 82803; 82962; 83605; 83690; 83735; 84100; 84132; 84484; 84550; 85025; 85610; 85651; 85730; 86140; 87040; 87045; 87046; 87086; 87209; 87324; 87389; 87449; 87493; 93005; 93010; 93971-TC; 97116-GP; 97162-GP; 99285-25; J0131; J1644